=== PATIENT | male | born 1985 | race Hispanic/Latino ===

== ENCOUNTER 2019-03-08 07:49 | Emergency (ER) | payer OTHER ==
[2019-03-08 07:54] VITALS: BP 172/108; PULSE 81; RESP 16; TEMP 97.7
[2019-03-08 07:55] VITALS: BMI 30.2
[2019-03-08] MEDS ORDERED: Povidone Iodine Oint 10% Foilpak UD ONE (08:15)
--- NOTE | 2019-03-08 08:37 | ED PDOC ---
HPI: Dental Pain/Injury Time Seen by Provider: 03/08/19 08:03 Chief Complaint (Nursing): Dental Pain Chief Complaint (Provider): Dental Pain History Per: Patient History/Exam Limitations: no limitations Onset/Duration Of Symptoms: Days (3) Additional Complaint(s): 33 y/o male presents to the ED complaining of painful swelling upper left lip thats been ongoing for 3 days. Patient states he tried to pop it 2 days ago and small amount of purell material came out with no improvement. Patient reports he saw his PMD yesterday and was started on Bactrim. Patient denies any fever. PMD: none provided Past Medical History Reviewed: Historical Data, Nursing Documentation, Vital Signs Vital Signs: Last Vital Signs Temp 97.7 F 03/08/19 07:53 Pulse 81 03/08/19 07:53 Resp 16 03/08/19 07:53 BP 172/108 H 03/08/19 07:53 Pulse Ox 99 03/08/19 07:53 - Family History Family History: States: Unknown Family Hx - Home Medications Home Medications: Ambulatory Orders Medication Instructions Recorded Clindamycin [Cleocin] 300 mg PO TID #30 cap 03/08/19 traMADol [Ultram] 50 mg PO Q8 #10 tab 03/08/19 - Allergies Allergies/Adverse Reactions: Allergies Allergy/AdvReac Type Severity Reaction Status Date / Time Unobtainable Allergy Verified 03/08/19 08:24 Review of Systems ROS Statement: Except As Marked, All Systems Reviewed And Found Negative Constitutional: Negative for: Fever ENT: Positive for: Other (upper left lip pain with swelling) Physical Exam - Reviewed Nursing Documentation Reviewed: Yes Vital Signs Reviewed: Yes - Physical Exam Appears: Positive for: Non-toxic, No Acute Distress Head Exam: Positive for: ATRAUMATIC, NORMOCEPHALIC Skin: Positive for: Normal Color, Warm, DRY Eye Exam: Positive for: EOMI, Normal appearance, PERRL ENT: Positive for: Normal ENT Inspection, Other (mild swelling upper lip and tender to palpation. No vesicle, No fluctuant.) Neck: Positive for: Normal, Painless ROM, Supple Cardiovascular/Chest: Positive for: Regular Rate, Rhythm. Negative for: Murmur Respiratory: Positive for: Normal Breath Sounds. Negative for: Respiratory Distress Gastrointestinal/Abdominal: Positive for: Normal Exam, Soft. Negative for: Tenderness Back: Positive for: Normal Inspection. Negative for: L CVA Tenderness, R CVA Tenderness Extremity: Positive for: Normal ROM Neurological/Psych: Positive for: Awake, Alert, Normal Tone, Oriented (x3). Negative for: Motor/Sensory Deficits - ECG O2 Sat by Pulse Oximetry: 99 Medical Decision Making Medical Decision Making: Time:825 Initial Impression: Initial Plan: -Cleocin 600mg -Toradol 30mg IVP Attend aspiration with 18gig needle, no purel material. Case discuss with plastic surgeon Dr. Chavez. Scribe Attestation: Documented by Mary Kay Trejo, acting as a scribe for Jose Brand. Provider Scribe Attestation: All medical record entries made by the Scribe were at my direction and personally dictated by me. I have reviewed the chart and agree that the record accurately reflects my personal performance of the history, physical exam, medical decision making, and the department course for this patient. I have also personally directed, reviewed, and agree with the discharge instructions and disposition. Disposition - Clinical Impression Clinical Impression: Cellulitis - Patient ED Disposition Is Patient to be Admitted: No Counseled Patient/Family Regarding: Diagnosis, Need For Followup, Rx Given - Disposition Referrals: Terry Chavez MD [Medical Doctor] - Disposition: Routine/Home Disposition Time: 11:00 Condition: FAIR Prescriptions: Clindamycin [Cleocin] 300 mg PO TID #30 cap traMADol [Ultram] 50 mg PO Q8 #10 tab Instructions: Cellulitis and Erysipelas (Skin Infections) Forms: [facility] (Greek)
[2019-03-08] MEDS ORDERED: Lidocaine 2% Inj (20ml) INFIL ONE (10:16)
[2019-03-08] MEDS ORDERED: Lidocaine 2% Inj (20ml) ONE (10:18)
[2019-03-08 11:32] VITALS: O2SAT 100
== END 2019-03-08 11:15 | disposition home or self-care (01) ==
LOC: H.ER 07:49
DX: K13.0 Diseases of lips (principal)
CPT/HCPCS: 87070; 96365; 96375; 99283; J1885